=== PATIENT | female | born 1940 | race Hispanic/Latino ===

== ENCOUNTER 2021-10-19 11:46 | Emergency (ER) | payer OTHER ==
[~2021-10-19] VITALS: Ht 154.9 cm; Wt 68.0 kg
[2021-10-19] MEDS ORDERED: ONDANSETRON HCL 4 MG ORAL DISINTEGRATING TAB PO ONE (12:00)
== END 2021-10-19 12:50 | disposition home or self-care (01) ==
LOC: ER 12:02
DX: U07.1 COVID-19 (principal); I10 Essential (primary) hypertension; E11.9 Type 2 diabetes mellitus without complications; E78.5 Hyperlipidemia, unspecified; Z96.652 Presence of left artificial knee joint
CPT/HCPCS: 99282; Q0162; U0002

== ENCOUNTER 2021-11-02 09:14 | Emergency (ER) | payer OTHER ==
[~2021-11-02] VITALS: Ht 154.9 cm; Wt 68.0 kg
== END 2021-11-02 10:20 | disposition home or self-care (01) ==
LOC: ER 09:20
DX: U07.1 COVID-19 (principal); J06.9 Acute upper respiratory infection, unspecified; I10 Essential (primary) hypertension; E11.9 Type 2 diabetes mellitus without complications; E78.5 Hyperlipidemia, unspecified; Z96.652 Presence of left artificial knee joint
CPT/HCPCS: 99283; U0002

== ENCOUNTER 2024-08-20 09:14 | Emergency (ER) | payer OTHER ==
[~2024-08-20] VITALS: Ht 152.4 cm; Wt 63.5 kg
[2024-08-20 09:20] VITALS: PULSE 58; RESP 16; TEMP 98.1; O2SAT 100
[2024-08-20 10:08] LABS: BASOPHILS % 0.6 % (0.0-1.0); EOSINOPHILS # (AUTO) 0.1 (0.0-0.4); EOSINOPHILS % 3.1 % (0.0-6.0); HEMATOCRIT 31.8 % (34.2-44.1); HEMOGLOBIN 10.3 g/dL (12.0-16.0); LYMPHOCYTES # (AUTO) 0.9 (1.0-3.2); LYMPHOCYTES % 27.7 % (18.0-39.1); MEAN CORPUSCULAR HEMOGLOBIN 32.8 pg (28-32); MEAN CORPUSCULAR HGB CONC 32.4 g/dL (31-35); MEAN CORPUSCULAR VOLUME 101.3 fL (81-99); MONOCYTES # (AUTO) 0.4 (0.2-0.8); MONOCYTES % 12.1 % (4.4-11.3); NEUTROPHILS # (AUTO) 1.8 (2.1-6.9); NEUTROPHILS % 56.2 % (38.7-80.0); PLATELET COUNT 190 x10e3/uL (140-360); RED BLOOD COUNT 3.14 x10e6/uL (3.6-5.1); RED CELL DISTRIBUTION WIDTH 12.7 % (11.7-14.4); WHITE BLOOD COUNT 3.21 x10e3/uL (4.8-10.8)
[2024-08-20] MEDS: ONDANSETRON HCL INJ 2MG/ML 2ML 2 MG/ML VIAL IV STA (10:14)
[2024-08-20] MEDS: SODIUM CHLORIDE 0.9% 1000ML 1,000 ML IV STA (10:15)
[2024-08-20] MEDS: Morphine 2mg Syringe 2 MG/ML SYR IV STA (10:16)
[2024-08-20 10:29] LABS: INR 0.98; PROTHROMBIN TIME 13.5 seconds (11.9-14.5)
[2024-08-20 10:30] LABS: PARTIAL THROMBOPLASTIN TIME 29.8 seconds (23.8-35.5)
[2024-08-20 10:44] LABS: ALANINE AMINOTRANSFERASE 18 IU/L (0-55); ALBUMIN 3.6 g/dL (3.5-5.0); ALBUMIN/GLOBULIN RATIO 0.9 (0.8-2.0); ALKALINE PHOSPHATASE 59 IU/L (40-150); ANION GAP 13.8 mmol/L (8-16); BILIRUBIN,TOTAL 0.5 mg/dL (0.2-1.2); BLOOD UREA NITROGEN 20 mg/dL (7-26); BUN/CREATININE RATIO 26 (6-25); CALCIUM 9.1 mg/dL (8.4-10.2); CARBON DIOXIDE 21 mmol/L (22-29); CHLORIDE 110 mmol/L (98-107); CREATINE KINASE 170 IU/L (29-168); CREATININE, SERUM 0.78 mg/dL (0.57-1.11); EST GLOMERULAR FILTRATION RATE 75 ML/MIN (>=60); GLUCOSE 101 mg/dL (74-118); LIPASE 30 U/L (8-78); POTASSIUM 3.8 mmol/L (3.5-5.1); SODIUM 141 mmol/L (136-145); TOTAL PROTEIN 7.4 g/dL (6.5-8.1)
[2024-08-20 11:12] LABS: CHOL/HDL RATIO 3.1 (3.0-3.6)
[2024-08-20] MEDS ORDERED: IOPAMIDOL 370 MG/ML 100 ML INFUS..BTL INJ ONE (11:31)
[2024-08-20 11:33] LABS: TROPONIN I < 0.05 ng/mL (0.0-0.40)
[2024-08-20 11:51] LABS: THYROID STIMULATING HORMONE 1.609 uIU/mL (0.350-4.940)
[2024-08-20] MEDS ORDERED: DICYCLOMINE HCL20 MG PO (12:50)
[2024-08-20] MEDS ORDERED: PANTOPRAZOLE SO40 MG PO (12:50)
[2024-08-20] MEDS ORDERED: ONDANSETRON ODT4 MG PO (12:50)
== END 2024-08-20 13:10 | disposition home or self-care (01) ==
LOC: ER 09:24
DX: R10.13 Epigastric pain (principal); K29.70 Gastritis, unspecified, without bleeding; K42.9 Umbilical hernia without obstruction or gangrene; K57.90 Diverticulosis of intestine, part unspecified, without perforation or abscess without bleeding; R11.0 Nausea; K76.0 Fatty (change of) liver, not elsewhere classified; I10 Essential (primary) hypertension; E78.5 Hyperlipidemia, unspecified; M19.09 Primary osteoarthritis, other specified site; K21.9 Gastro-esophageal reflux disease without esophagitis; R94.31 Abnormal electrocardiogram [ECG] [EKG]; Z96.652 Presence of left artificial knee joint
CPT/HCPCS: 36415; 71045; 74177; 76705; 80053; 80061; 82550; 83690; 83735; 84443; 84484; 85025; 85610; 85730; 93005; 99284; J2270; J2405; J2470; J7030; Q9967

== ENCOUNTER 2025-07-30 10:08 | Emergency (ER) | payer MEDICARE ==
[~2025-07-30] VITALS: Ht 121.9 cm; Wt 66.7 kg
[~2025-07-30 10:08] MED LIST: DICYCLOMINE HCL20 MG PO; ONDANSETRON ODT4 MG PO; PANTOPRAZOLE SO40 MG PO
[2025-07-30] MEDS ORDERED: WESTAB PLUS TA1 EACH PO (11:05)
[2025-07-30] MEDS ORDERED: ALENDRONATE SOD70 MG PO (11:05)
[2025-07-30] MEDS ORDERED: METFORMIN HCL500 MG PO (11:05)
[2025-07-30] MEDS ORDERED: LOSARTAN POTAS100 MG PO (11:05)
[2025-07-30] MEDS ORDERED: ROSUVASTATIN CA20 MG PO (11:05)
[2025-07-30] MEDS ORDERED: AMLODIPINE BES2.5 MG PO (11:05)
[2025-07-30 12:41] LABS: BASOPHILS % 0.5 % (0.0-1.0); EOSINOPHILS % 1.4 % (0.0-6.0); LYMPHOCYTES % 24.5 % (18.0-39.1); MONOCYTES % 13.2 % (4.4-11.3); NEUTROPHILS % 60.2 % (38.7-80.0); RED CELL DISTRIBUTION WIDTH 12.9 % (11.7-14.4)
[2025-07-30] MEDS: SODIUM CHLORIDE 0.9% 1000ML 1,000 ML IV STA (12:44)
[2025-07-30] MEDS: ONDANSETRON HCL INJ 2MG/ML 2ML 2 MG/ML VIAL IV STA (12:45)
[2025-07-30 12:47] LABS: INR 1.07
[2025-07-30] MEDS: Morphine 2mg Syringe 2 MG/ML SYR IV STA (12:47)
[2025-07-30 12:57] LABS: EST GLOMERULAR FILTRATION RATE 86.0 ML/MIN (>=60)
[2025-07-30 13:19] LABS: EPITHELIAL CELLS,URINE FEW /LPF; LEUKOCYTE ESTERASE ,URINE SMALL (NEGATIVE); PROTEIN,URINE DIPSTICK NEGATIVE (NEGATIVE); URINE UROBILINOGEN 0.2 mg/dL (0.2 - 1); WBC,URINE (MAN) >50 /HPF (0-5)
[2025-07-30] MEDS ORDERED: IOPAMIDOL 370 MG/ML 100 ML INFUS..BTL INJ ONE (13:57)
[2025-07-30 17:24] VITALS: PULSE 51; RESP 16; TEMP 98.1; O2SAT 99
== END 2025-07-30 17:25 | disposition home or self-care (01) ==
LOC: ER 11:30
DX: R10.11 Right upper quadrant pain (principal); R00.1 Bradycardia, unspecified; I10 Essential (primary) hypertension; E78.5 Hyperlipidemia, unspecified; K21.9 Gastro-esophageal reflux disease without esophagitis; M19.09 Primary osteoarthritis, other specified site; R94.31 Abnormal electrocardiogram [ECG] [EKG]; Z96.652 Presence of left artificial knee joint
CPT/HCPCS: 36415; 71045; 74177; 76705; 80053; 81001; 83690; 83735; 83880; 84484; 85025; 85610; 85730; 93005; 99284; J2270; J2405; J2470; J7030; Q9967